=== PATIENT | male | born 1985 | race African-American/Black ===

== ENCOUNTER 2019-09-17 05:44 | Emergency (ER) | payer BC ==
[~2019-09-17] VITALS: Ht 182.9 cm; Wt 81.6 kg
[2019-09-17] MEDS ORDERED: MORPHINE SULFATE INJ 4 MG/ML DISP.SYRIN ONE (05:57)
[2019-09-17] MEDS ORDERED: ONDANSETRON HCL/PF 4 MG/2 ML VIAL ONE (05:57)
--- NOTE | 2019-09-17 06:05 | NUR ---
PT REFUSED MORPHINE. REPORTED REACTION (ITCHINESS) TO THE MEDICATION, DR RAYO MADE AWARE. AWAITING FOR NEW ORDER.
[2019-09-17] MEDS: MORPHINE SULFATE INJ 4 MG/ML DISP.SYRIN IV ONE (06:07)
[2019-09-17] MEDS: ONDANSETRON HCL/PF - ER 4 MG/2 ML VIAL IV ONE (06:07)
[2019-09-17] MEDS: IV NS 0.9% 1,000 ML BAG IV ONE (06:07)
[2019-09-17 06:13] LABS: BASOPHILS % (AUTO) 0.5 % (0.0-2.0); EOSINOPHILS % (AUTO) 2.4 % (0.0-6.0); HEMATOCRIT 39 % (39-51); HEMOGLOBIN 13.3 g/dL (13.5-17.5); LYMPHOCYTES % (AUTO) 41.5 % (20.0-44.0); MEAN CORPUSCULAR HGB CONC 34 g/dl (31.0-36.0); MEAN CORPUSCULAR VOLUME 71 fL (80-96); MONOCYTES # (AUTO) 0.4 /CMM (0.1-1.30); MONOCYTES % (AUTO) 7.4 % (2.0-12.0); NEUTROPHILS # (AUTO) 2.3 /CMM (1.8-8.9); NEUTROPHILS % (AUTO) 48.2 % (43.0-81.0); PLATELET COUNT (AUTO) 134 /CMM (150-450); RED BLOOD CELL COUNT(AUTO) 5.58 MIL/uL (4.5-6.0); WHITE BLOOD COUNT (AUTO) 4.8 K/uL (4.3-11.0)
[2019-09-17 06:14] LABS: CREATININE 0.9 mg/dL (0.6-1.3)
[2019-09-17 06:20] LABS: ALBUMIN 4.3 g/dL (3.4-5.0); BILIRUBIN,DIRECT 0.3 mg/dL (0.0-0.2); BILIRUBIN,TOTAL 1.1 mg/dL (0.2-1.0); TOTAL PROTEIN, SERUM 7.4 g/dL (6.4-8.2)
[2019-09-17] MEDS ORDERED: oxyCODONE/APAP (5/325 MG) 1 UDTAB TABLET ONE (06:39)
[2019-09-17] MEDS: oxyCODONE/APAP (5/325 MG) 1 UDTAB TABLET PO ONE (06:44)
--- NOTE | 2019-09-17 07:03 | NUR ---
Patient discharged to home in stable condition. Written and verbal after care instructions given. Patient verbalizes understanding of instruction.IV removed. Catheter intact and site benign. Pressure and 4x4 applied to site. No bleeding noted.Pt ambulatory with a steady gait
[2019-09-17 07:04] VITALS: BP 131/88
[2019-09-17 07:06] LABS: LYMPHOCYTES % (MANUAL) 50 % (16-48); MONOCYTES % (MANUAL) 4 % (0-11.0); NEUTROPHILS % (MANUAL) 46 (42-76)
== END 2019-09-17 07:04 | disposition home or self-care (01) ==
LOC: ER 05:48
DX: M79.10 Myalgia, unspecified site (principal); Z88.6 Allergy status to analgesic agent
CPT/HCPCS: 36415; 80048; 80076; 85025; 85045; 85660; 99283; J2405 ×2; J7030; J2270